=== PATIENT | female | born 1945 | race Caucasian/White ===

== ENCOUNTER 2017-05-19 19:20 | Inpatient (IN) | payer MEDICARE ==
[~2017-05-19] VITALS: Ht 157.5 cm; Wt 94.5 kg
[2017-05-19 19:21] VITALS: BP 215/109; PULSE 94; RESP 16; TEMP 97.9; O2SAT 97
[2017-05-19] MEDS ORDERED: LISI40TA PO (19:50)
--- NOTE | 2017-05-19 19:58 | PD ---
HPI Chief Complaint: Hypertension Time Seen by Provider: 19:48 Travel History International Travel<30 days: No Contact w/Intl Traveler<30days: No Traveled to known affect area: No History of Present Illness HPI 72-year-old female with history of hypertension, here for evaluation of elevated blood pressure and chest discomfort. The patient's son was recently admitted to the ICU, and she was informed of this this morning. Shortly after she began to experience substernal chest discomfort. The discomfort has been present throughout the day today and has been constant, no modifying factors, currently is mild, nonradiating. She has some slight dyspnea. She denies history of coronary artery disease. She became very upset while visiting her son up in the ICU, and they checked her blood pressure and noted to be 200s over 100s. She is also complaining of some tingling sensation around her lips. Other than that no paresthesias or motor deficits. No fevers, chills, cough, recent illness. No history of DVT or PE. PFSH Past Medical History ?: Not Social History Tobacco Use: No Allergies-Medications (Allergen,Severity, Reaction): Coded Allergies: No Known Allergies (Unverified , 05/19/17) Reported Meds & Prescriptions Reported Meds & Active Scripts Active Reported Ropinirole 0.5 Mg Tab Unknown Dose PO HS Lisinopril 40 Mg Tab 40 Mg PO DAILY Review of Systems Except as stated in HPI: all other systems reviewed are Neg Physical Exam Narrative GENERAL: Well-developed, well-nourished, tearful, no apparent distress. SKIN: Focused skin assessment warm/dry. HEAD: Atraumatic. Normocephalic. EYES: Pupils equal and round. No scleral icterus. No injection or drainage. ENT: Mucous membranes pink and moist. NECK: Trachea midline. No JVD. CARDIOVASCULAR: Regular rate and rhythm. Distal pulses brisk and equal bilaterally. RESPIRATORY: No accessory muscle use. Clear to auscultation. Breath sounds equal bilaterally. GASTROINTESTINAL: Abdomen soft, non-tender, nondistended. MUSCULOSKELETAL: No obvious deformities. No clubbing. No cyanosis. Very mild bilateral pedal edema from foot ankle. No calf tenderness. NEUROLOGICAL: Awake and alert. No obvious cranial nerve deficits. Motor grossly within normal limits. Normal speech. PSYCHIATRIC: Appropriate mood and affect; insight and judgment normal. Data Data Last Documented VS Vital Signs Date Time Temp Pulse Resp B/P (MAP) Pulse Ox O2 Delivery O2 Flow Rate FiO2 05/19/17 21:00 77 18 150/75 (100) 96 Room Air 05/19/17 19:21 97.9 Orders Orders Electrocardiogram (05/19/17 19:54) Basic Metabolic Panel (Bmp) (05/19/17 19:54) Ckmb (Isoenzyme) Profile (05/19/17 19:54) Complete Blood Count With Diff (05/19/17 19:54) Prothrombin Time / Inr (Pt) (05/19/17 19:54) Act Partial Throm Time (Ptt) (05/19/17 19:54) Troponin I (05/19/17 19:54) Chest, Single Ap (05/19/17 19:54) Ecg Monitoring (05/19/17 19:54) Bilateral Bp Monitoring (05/19/17 19:54) Iv Access Insert/Monitor (05/19/17 19:54) Oximetry (05/19/17 19:54) Oxygen Administration (05/19/17 19:54) Aspirin Chew (Aspirin Chew) (05/19/17 20:00) Sodium Chloride 0.9% Flush (Ns Flush) (05/19/17 20:00) Nitroglycerin Sl (Nitrostat Sl) (05/19/17 20:00) Enalaprilat Inj (Vasotec Inj) (05/19/17 20:00) CKMB (05/19/17 20:05) CKMB% (05/19/17 20:05) Heparin Inj (Heparin Inj) (05/19/17 21:15) Heparin Inj (Heparin Inj) (05/20/17 03:15) Heparin Inj (Heparin Inj) (05/20/17 03:15) Heparin-D5w 25,000 U/250 Ml (Heparin-D5w (05/19/17 21:15) Cbc No Diff, Includes Plts (05/22/17 06:00) Act Partial Throm Time (Ptt) (05/20/17 04:13) Occult Blood (Hemoccult) Stool (05/19/17 21:13) Admit Order (Ed Use Only) (05/19/17 21:19) Labs Laboratory Tests Test 05/19/17 20:05 White Blood Count 10.0 TH/MM3 Red Blood Count 3.99 MIL/MM3 Hemoglobin 12.1 GM/DL Hematocrit 35.9 % Mean Corpuscular Volume 90.1 FL Mean Corpuscular Hemoglobin 30.4 PG Mean Corpuscular Hemoglobin Concent 33.8 % Red Cell Distribution Width 14.6 % Platelet Count 348 TH/MM3 Mean Platelet Volume 8.8 FL Neutrophils (%) (Auto) 61.8 % Lymphocytes (%) (Auto) 26.2 % Monocytes (%) (Auto) 9.3 % Eosinophils (%) (Auto) 1.7 % Basophils (%) (Auto) 1.0 % Neutrophils # (Auto) 6.2 TH/MM3 Lymphocytes # (Auto) 2.6 TH/MM3 Monocytes # (Auto) 0.9 TH/MM3 Eosinophils # (Auto) 0.2 TH/MM3 Basophils # (Auto) 0.1 TH/MM3 CBC Comment DIFF FINAL Differential Comment Prothrombin Time 11.0 SEC Prothromb Time International Ratio 1.0 RATIO Activated Partial Thromboplast Time 28.6 SEC Blood Urea Nitrogen 17 MG/DL Creatinine 0.88 MG/DL Random Glucose 80 MG/DL Calcium Level 9.9 MG/DL Sodium Level 139 MEQ/L Potassium Level 3.6 MEQ/L Chloride Level 105 MEQ/L Carbon Dioxide Level 22.9 MEQ/L Anion Gap 11 MEQ/L Estimat Glomerular Filtration Rate 63 ML/MIN Total Creatine Kinase 127 U/L Creatine Kinase MB 5.3 NG/ML Troponin I 1.40 NG/ML [facility] Medical Decision Making Medical Screen Exam Complete: Yes Emergency Medical Condition: Yes Interpretation(s) EKG: Sinus, rate 89, normal axis, normal intervals, Q waves in septal leads, no acute ischemic abnormality. Differential Diagnosis ACS, pneumothorax, pericarditis, PE, pneumonia, Takotsubo's, hypertensive crisis Narrative Course Initial vital signs show heart rate 94, blood pressure 215/109, pulse ox 97% on room air, oral temp of 97.9F. Blood pressure improved to 180/101 after sublingual nitroglycerin. Bilateral blood pressures show 180/101 in the left upper extremity, 179/91 in the right upper extremity. CBC is unremarkable. BMP is unremarkable. Troponin is 1.40. Chest x-ray interpreted by me shows no free air, no pneumothorax, no infiltrate. Patient was made aware of all findings. Her substernal chest discomfort resolved after 1 sublingual nitroglycerin. Her blood pressure has improved to 150/72. Case discussed with on-call educational administration teacher Dr. Caban. The patient will be started on heparin, admitted to the hospitalist service. He will see the patient in consultation. Case discussed with hospitalist Dr. Montes De Oca who will admit the patient to her service. Critical Care Narrative Aggregate critical care time was 35 minutes. Time to perform other separately billable procedures was not included in the critical care time. My time did not include minutes spent treating any other patients simultaneously or on activities that did not directly contribute to the patient's treatment. The services I provided to this patient were to treat and/or prevent clinically significant deterioration that could result in: , permanent disability, cardiogenic shock, worsening clinical condition I provided critical care services requiring my management, as noted below: Chart data review, documentation time, medication orders and management, vital sign assessments/reviewing monitor data, ordering and reviewing lab tests, ordering and interpreting/reviewing x-rays and diagnostic studies, care of the patient and discussion of the patient with the admitting physicians. Diagnosis Primary Impression: NSTEMI (non-ST elevated myocardial infarction) Chris Geller MD May 19, 2017 19:58
[2017-05-19] MEDS ORDERED: NITROGLYCERIN 0.4 MG SL 25 TABS/BTL SL ONE (20:00)
[2017-05-19] MEDS ORDERED: SODIUM CHLORIDE 0.9% FLUSH 10 ML FLUSH IVF PRN (20:00)
[2017-05-19] MEDS ORDERED: ASPIRIN 81 MG CHEW TAB PO ONE (20:00)
[2017-05-19] MEDS ORDERED: ENALAPRILAT 2.5 MG/2 ML VIAL IV PUSH ONE (20:00)
[2017-05-19 20:05] VITALS: BP 180/101; PULSE 80; RESP 20; O2SAT 98
[2017-05-19 20:07] VITALS: BP_SYST 179; BP_SYST 180; BP_DIAS 101; BP_DIAS 91; PULSE 80; RESP 20; O2SAT 98
[2017-05-19] MEDS ORDERED: ROPI0.5T PO (20:09)
[2017-05-19 20:42] LABS: AUTOMATED NEUTROPHIL # 6.2 TH/MM3 (1.8-7.7); BASOPHIL # 0.1 TH/MM3 (0-0.2); EOSINOPHIL # 0.2 TH/MM3 (0-0.4); EOSINOPHIL % 1.7 % (0.0-4.0); HEMATOCRIT 35.9 % (35.0-46.0); HEMO FLAGS DIFF FINAL; LYMPH % 26.2 % (9.0-44.0); LYMPHOCYTE # 2.6 TH/MM3 (1.0-4.8); MEAN CELL VOLUME 90.1 FL (80.0-100.0); MEAN CORPUSCULAR HEMOGLOBIN 30.4 PG (27.0-34.0); MEAN CORPUSCULAR HGB CONC 33.8 % (32.0-36.0); MONO % 9.3 % (0.0-8.0); NEUT % 61.8 % (16.0-70.0); PLATELET COUNT 348 TH/MM3 (150-450); RED BLOOD COUNT 3.99 MIL/MM3 (4.00-5.30); RED CELL DISTRIBUTION WIDTH 14.6 % (11.6-17.2)
[2017-05-19 20:56] LABS: ANION GAP 11 MEQ/L (5-15); BICARBONATE 22.9 MEQ/L (21.0-32.0); BLOOD UREA NITROGEN 17 MG/DL (7-18); CHLORIDE 105 MEQ/L (98-107); GLOMERULAR FILTRATION RATE 63 ML/MIN (>89); POTASSIUM 3.6 MEQ/L (3.5-5.1); SODIUM (NA) 139 MEQ/L (136-145)
[2017-05-19 21:00] VITALS: BP 150/75; PULSE 77; RESP 18; O2SAT 96
[2017-05-19 21:00] LABS: APTT (PATIENT) 28.6 SEC (24.3-30.1); CREATINE KINASE 127 U/L (26-192)
[2017-05-19] MEDS ORDERED: HEPARIN SODIUM - IV 10,000 UNITS/10 ML VIAL IV PUSH ONE (21:15)
[2017-05-19] MEDS ORDERED: HEPARIN-D5W 25,000 U/250 ML 250 ML IV PRN (21:15)
[2017-05-19 21:20] LABS: CKMB 5.3 NG/ML (0.5-3.6)
--- NOTE | 2017-05-19 21:36 | HHI.HP ---
[facility] Service [facility] Primary Care Physician No Primary Care Physician Admission Diagnosis NSTEMI Diagnoses: (1) NSTEMI (non-ST elevated myocardial infarction) Diagnosis: Principal (2) Hypertensive urgency Diagnosis: Principal (3) Dehydration Diagnosis: Principal Travel History International Travel<30 Days: No Contact w/Intl Traveler <30 Da: No Traveled to Known Affected Are: No History of Present Illness This is a 72-year-old female with a PMH of HTN who presents to the ER secondary to elevated blood pressure. States she was visiting her Son who is a patient in the ICU w/ liver/renal failure, when she suddenly had episode of chest pain. BP taken by LOAN REVIEW ANALYST noted to be in 200's systolic. Pt states she forgot to take her Lisinopril today in light of her Son's admission to the ICU. On arrival to ER BP 250/109, HR 94, O2 sat 97% on RA, Afebrile. S/p Vasotec 2.5mg IV in ER, BP currently 160's systolic. CBC unremarkable. Chemistry remarkable except for GFR 63. Troponin 1.40. CXR with no acute findings. Dr. Caban consulted by ER physician, recommended Heparin gtt, will eval in am. Review of Systems Except as stated in HPI: all other systems reviewed are Neg ROS: 14 point review of systems otherwise negative. Past Family Social History Past Medical History PMH: HTN Past Surgical History PAST SURGICAL HISTORY: Appendectomy, Cholecystectomy Allergies: Coded Allergies: No Known Allergies (Unverified , 05/19/17) Family History PAST FAMILY HISTORY: Reviewed. No h/o DM or CAD Social History PAST SOCIAL HISTORY: Negative for alcohol, tobacco or drugs. Physical Exam Vital Signs Vital Signs Date Time Temp Pulse Resp B/P (MAP) Pulse Ox O2 Delivery O2 Flow Rate FiO2 05/19/17 20:07 80 20 180/101 (127) 98 Room Air 179/91 (120) 05/19/17 20:05 80 20 180/101 (127) 98 Room Air 05/19/17 19:21 97.9 94 16 215/109 (144) 97 Room Air Physical Exam PE: GENERAL: Elderly white female, significantly tearful and upset she is not able to be with her Son. HEENT: PERRLA, EOMI. No scleral icterus or conjunctival pallor. No lid lag or facial droop. CARDIOVASCULAR: Regular rate and rhythm. No obvious murmurs to auscultation. No chest tenderness to palpation. RESPIRATORY: No obvious rhonchi or wheezing. Clear to auscultation. Breath sounds equal bilaterally. GASTROINTESTINAL: Abdomen soft, non-tender, nondistended. BS normal. MUSCULOSKELETAL: Extremities without clubbing, cyanosis, or edema. No obvious deformities. NEUROLOGICAL: Awake, alert and oriented x4. No focal neurologic deficits. Moving both upper and lower extremities spontaneously. Laboratory Laboratory Tests Test 05/19/17 20:05 White Blood Count 10.0 Red Blood Count 3.99 Hemoglobin 12.1 Hematocrit 35.9 Mean Corpuscular Volume 90.1 Mean Corpuscular Hemoglobin 30.4 Mean Corpuscular Hemoglobin Concent 33.8 Red Cell Distribution Width 14.6 Platelet Count 348 Mean Platelet Volume 8.8 Neutrophils (%) (Auto) 61.8 Lymphocytes (%) (Auto) 26.2 Monocytes (%) (Auto) 9.3 Eosinophils (%) (Auto) 1.7 Basophils (%) (Auto) 1.0 Neutrophils # (Auto) 6.2 Lymphocytes # (Auto) 2.6 Monocytes # (Auto) 0.9 Eosinophils # (Auto) 0.2 Basophils # (Auto) 0.1 CBC Comment DIFF FINAL Differential Comment Prothrombin Time 11.0 Prothromb Time International Ratio 1.0 Activated Partial Thromboplast Time 28.6 Blood Urea Nitrogen 17 Creatinine 0.88 Random Glucose 80 Calcium Level 9.9 Sodium Level 139 Potassium Level 3.6 Chloride Level 105 Carbon Dioxide Level 22.9 Anion Gap 11 Estimat Glomerular Filtration Rate 63 Total Creatine Kinase 127 Creatine Kinase MB 5.3 Troponin I 1.40 Result Diagram: 05/19/17200405/19/172004 Caprini VTE Risk Assessment Caprini VTE Risk Assessment: Mod/High Risk (score >= 2) Caprini Risk Assessment Model Point Value = 1 Point Value = 2 Point Value = 3 Point Value = 5 Age 41-60 Minor surgery BMI > 25 kg/m2 Swollen legs Varicose veins or History of unexplained or recurrent spontaneous Oral contraceptives or hormone replacement Sepsis (< 1 month) Serious lung disease, including pneumonia (< 1 month) Abnormal pulmonary function Acute myocardial infarction Congestive heart failure (< 1 month) History of inflammatory bowel disease Medical patient at bed rest Age 61-74 Arthroscopic surgery Major open surgery (> 45 min) Laparoscopic surgery (> 45 min) Malignancy Confined to bed (> 72 hours) Immobilizing plaster cast Central venous access Age >= 75 History of VTE Family history of VTE Factor V Leiden Prothrombin 40430G Lupus anticoagulant Anticardiolipin antibodies Elevated serum homocysteine Heparin-induced thrombocytopenia Other congenital or acquired thrombophilia Stroke (< 1 month) Elective arthroplasty Hip, pelvis, or leg fracture Acute spinal cord injury (< 1 month) Prophylaxis Regimen Total Risk Factor Score Risk Level Prophylaxis Regimen 0-1 Low Early ambulation 2 Moderate Order ONE of the following: *Sequential Compression Device (SCD) *Heparin 5000 units SQ BID 3-4 Higher Order ONE of the following medications: *Heparin 5000 units SQ TID *Enoxaparin/Lovenox 40 mg SQ daily (WT < 150 kg, CrCl > 30 mL/min) *Enoxaparin/Lovenox 30 mg SQ daily (WT < 150 kg, CrCl > 10-29 mL/min) *Enoxaparin/Lovenox 30 mg SQ BID (WT < 150 kg, CrCl > 30 mL/min) AND/OR *Sequential Compression Device (SCD) 5 or more Highest Order ONE of the following medications: *Heparin 5000 units SQ TID (Preferred with Epidurals) *Enoxaparin/Lovenox 40 mg SQ daily (WT < 150 kg, CrCl > 30 mL/min) *Enoxaparin/Lovenox 30 mg SQ daily (WT < 150 kg, CrCl > 10-29 mL/min) *Enoxaparin/Lovenox 30 mg SQ BID (WT < 150 kg, CrCl > 30 mL/min) AND *Sequential Compression Device (SCD) Assessment and Plan Problem List: (1) NSTEMI (non-ST elevated myocardial infarction) ICD Code: I21.4 - Non-ST elevation (NSTEMI) myocardial infarction Status: Acute (2) Hypertensive urgency ICD Code: I16.0 - Hypertensive urgency (3) Dehydration ICD Code: E86.0 - Dehydration Assessment and Plan A/P: 1. NSTEMI: acute onset of substernal chest pain, Trop 1.40, EKG w/ no acute ischemia. Dr. Caban consulted by ER physician, Heparin gtt and will eval in am. Continue Heparin, check serial cardiac enzymes, check Lipid Profile, start ASA, Statin, Metoprolol. NTG/Morphine prn if needed. 2. Hypertensive Urgency: BP 219/109, HR 94. S/p Vasotec in ER w/ BP currently 160's. Resume home medications, start Metoprolol as above. 3. Dehydration: GFR 63, IVF for hydration, repeat labs in am. 4. DVT Prophylaxis: Heparin gtt 5. Social work for d/c planning as needed. 6. Case discussed w/ ER physician at length. Physician Certification 2 Midnight Certification Type: Admission for Inpatient Services Order for Inpatient Services The services are ordered in accordance with Medicare regulations or non- Medicare payer requirements, as applicable. In the case of services not specified as inpatient-only, they are appropriately provided as inpatient services in accordance with the 2-midnight benchmark. Estimated LOS (days): 2 days is the estimated time the patient will need to remain in the hospital, assuming treatment plan goals are met and no additional complications. Post-Hospital Plan: Not yet determined Essence Montes De Oca MD May 19, 2017 21:36
--- NOTE | 2017-05-19 21:38 | RADRPT ---
EXAM DATE/TIME: 05/19/2017 20:17 [facility] COMPARISON: No previous studies available for comparison. INDICATIONS : Chest pain. MEDICAL HISTORY : Hypertension. SURGICAL HISTORY : None. ENCOUNTER: Initial ACUITY: 1 day PAIN SCORE: 5/10 LOCATION: chest FINDINGS: A single view of the chest demonstrates the lungs to be symmetrically aerated without evidence of mas s, infiltrate or effusion. The cardiomediastinal contours are unremarkable. Osseous structures are intact. CONCLUSION: No acute disease. Anmol Sharma MD on May 19, 2017 at 21:37 Board Certified Radiologist. This report was verified electronically.
[2017-05-19] MEDS ORDERED: ACETAMINOPHEN 325 MG TAB PO PRN (21:45)
[2017-05-19] MEDS ORDERED: SODIUM CHLORIDE 0.9% FLUSH 10 ML FLUSH IV FLUSH PRN (21:45)
[2017-05-19] MEDS ORDERED: LACTULOSE SYRUP 20 GM/30 ML CUP PO PRN (21:45)
[2017-05-19] MEDS ORDERED: BISACODYL 10 MG SUPP RECTAL PRN (21:45)
[2017-05-19] MEDS ORDERED: MORPHINE SULFATE 4 MG/ML INJ IV PUSH PRN (21:45)
[2017-05-19] MEDS ORDERED: MAGNESIUM HYDROXIDE SUSP 30 ML CUP PO PRN (21:45)
[2017-05-19] MEDS ORDERED: ONDANSETRON HCL 4 MG/2 ML VIAL IVP PRN (21:45)
[2017-05-19] MEDS ORDERED: NITROGLYCERIN 2% OINT 1 GM PACKET TOPICAL PRN (21:45)
[2017-05-19] MEDS ORDERED: SENNOSIDES 8.6 MG TAB PO PRN (21:45)
[2017-05-19 22:00] VITALS: BP 170/91; PULSE 76; RESP 16; O2SAT 97
[2017-05-19] MEDS ORDERED: HYDROmorphone HCL PF 0.5 MG/0.5 ML SYRINGE IV PUSH ONE (22:15)
[2017-05-19 23:06] VITALS: BP 151/79; PULSE 76; RESP 16; O2SAT 95
[2017-05-19] MEDS: SODIUM CHLOR 0.9% 1000 ML INJ 1,000 ML IV SCH (23:32)
[2017-05-19] MEDS ORDERED: diphenhydrAMINE HCL 50 MG/ML VIAL IV PUSH ONE (23:45)
[2017-05-20] VITALS (18 sets, daily range): BP systolic 119–180; BP diastolic 74–103; PULSE 61–93; RESP 16–18; TEMP 96.4–98.4; O2SAT 95–99
[2017-05-20] MEDS ORDERED: HEPARIN SODIUM - IV 10,000 UNITS/10 ML VIAL IV PUSH PRN ×2 (03:15)
--- NOTE | 2017-05-20 05:52 | MB ---
cc: VARUN CABAN DATE OF CONSULTATION 05/19/2017 REASON FOR CONSULTATION Ms. Matson is a 72-year-old white female with history of hypertension and dyslipidemia. She was visiting her son who is admitted to the ICU and with severe illness, developed substernal chest discomfort which started this morning. She has had mild dyspnea. Her blood pressure was elevated over 200 when she was visiting her son. PAST MEDICAL HISTORY 1. History of hypertension. 2. Dyslipidemia. No history of coronary artery disease or CVA. INDICATIONS 1. Lisinopril. 2. Ropinerol. ALLERGIES None. SOCIAL HISTORY The patient does not smoke. She does drinks alcohol rarely. She is accompanied by her . FAMILY HISTORY Positive for heart disease. REVIEW OF SYSTEMS Otherwise negative. PHYSICAL EXAMINATION VITAL SIGNS: Blood pressure was 170/90, pulse 80 and regular. HEENT: Negative. NECK: 2+ carotid upstrokes. No bruits. LUNGS: Clear. HEART: Regular with no murmur, gallop or rub. ABDOMEN: Soft. No bruits. EXTREMITIES: No edema. 2+ distal pulses. NEUROLOGIC: Grossly intact. The patient is restless. EKG Reviewed and showed normal sinus rhythm with normal axis and intervals. Delayed R-wave progression of pericardial leads and no acute changes. LABORATORY DATA Hemoglobin 12.1, potassium 3.6, creatinine 0.9. CK 127, CK-MB 5.3, troponin 1.4. DIAGNOSES 1. Rep-[id number]-[id number] myocardial function. 2. Severe hypertension. 3. Anxiety. DISPOSITION 1. Ms. Matson will be monitored with telemetry, serial enzymes and EKGs. 2. We will obtain adenosine myocardial perfusion study tomorrow to evaluate for significant ischemia. The patient is currently asymptomatic. 3. I recommend she be started on IV heparin. 4. We will continue and titrate medications for better control of her cardiac risk factors. 5. She will follow up with her physicians at home. Varun Caban MD OQ/SSB /9:45 PM /5:37 AM
[2017-05-20 07:04] LABS: APTT (PATIENT) 66.2 SEC (24.3-30.1)
[2017-05-20] MEDS: PRAVASTATIN SOD 40 MG TAB PO SCH (08:16)
[2017-05-20] MEDS: METOPROLOL TARTRATE 25 MG TAB PO SCH ×2 (08:16→21:17)
[2017-05-20] MEDS: ASPIRIN EC 81 MG TABEC PO SCH (08:16)
[2017-05-20] MEDS: SODIUM CHLORIDE 0.9% FLUSH 10 ML FLUSH IV FLUSH SCH ×2 (08:17→21:17)
[2017-05-20] MEDS: SODIUM CHLOR 0.9% 1000 ML INJ 1,000 ML IV SCH (08:17)
[2017-05-20] MEDS: DOCUSATE SODIUM 50 MG/SENNA 8.6 MG TAB PO SCH ×2 (08:17→21:17)
[2017-05-20 09:48] LABS: AUTOMATED NEUTROPHIL # 3.7 TH/MM3 (1.8-7.7); BASOPHIL # 0.1 TH/MM3 (0-0.2); BASOPHIL % 1.2 % (0.0-2.0); EOSINOPHIL # 0.3 TH/MM3 (0-0.4); EOSINOPHIL % 3.3 % (0.0-4.0); HEMATOCRIT 30.6 % (35.0-46.0); HEMO FLAGS DIFF FINAL; LYMPH % 36.9 % (9.0-44.0); LYMPHOCYTE # 2.8 TH/MM3 (1.0-4.8); MEAN CORPUSCULAR HEMOGLOBIN 31.3 PG (27.0-34.0); MEAN CORPUSCULAR HGB CONC 34.8 % (32.0-36.0); NEUT % 49.6 % (16.0-70.0); PLATELET COUNT 278 TH/MM3 (150-450); RED CELL DISTRIBUTION WIDTH 14.5 % (11.6-17.2); WHITE BLOOD COUNT 7.5 TH/MM3 (4.0-11.0)
[2017-05-20 10:25] LABS: ALKALINE PHOSPHATASE 48 U/L (45-117); ALT (GPT) 18 U/L (10-53); ANION GAP 9 MEQ/L (5-15); AST (GOT) 22 U/L (15-37); BICARBONATE 21.8 MEQ/L (21.0-32.0); BLOOD UREA NITROGEN 15 MG/DL (7-18); CHLORIDE 110 MEQ/L (98-107); GLOMERULAR FILTRATION RATE 83 ML/MIN (>89); LDL CHOLESTEROL 116 MG/DL (0-99); POTASSIUM 3.5 MEQ/L (3.5-5.1); SODIUM (NA) 141 MEQ/L (136-145); TOTAL BILIRUBIN ADULT 0.8 MG/DL (0.2-1.0)
[2017-05-20] MEDS ORDERED: REGADENOSON INJ 0.4 MG/5 ML SYR ONE (11:03)
--- NOTE | 2017-05-20 12:36 | PD.CARD.PN ---
Subjective Subjective Remarks Mild chest tightness, mild sob, anxious, trop decreasing Objective Medications Current Medications Medications (Trade) Dose Ordered Sig/Yandy Route Start Time Stop Time Status Last Admin (Heparin Inj) 5,000 units UNSCH PRN IV PUSH 05/20/17 03:15 (Heparin Inj) 2,500 units UNSCH PRN IV PUSH 05/20/17 03:15 Heparin Sodium/ Dextrose 250 ml @ 10 mls/hr TITRATE PRN IV 05/19/17 21:15 05/19/17 22:06 (Ecotrin Ec) 81 mg DAILY PO 05/20/17 09:00 05/20/17 08:16 (Lopressor) 25 mg Q12HR PO 05/20/17 09:00 05/20/17 08:16 (Pravachol) 40 mg DAILY PO 05/20/17 09:00 05/20/17 08:16 Sodium Chloride 1,000 ml @ 100 mls/hr Q10H IV 05/19/17 21:31 05/20/17 08:17 (NS Flush) 2 ml UNSCH PRN IV FLUSH 05/19/17 21:45 (NS Flush) 2 ml BID IV FLUSH 05/20/17 09:00 05/20/17 08:17 (Zofran Inj) 4 mg Q6H PRN IVP 05/19/17 21:45 (Tylenol) 650 mg Q6H PRN PO 05/19/17 21:45 05/20/17 08:25 ([place] 5-325 Mg) 1 tab Q4H PRN PO 05/19/17 21:45 (Morphine Inj) 2 mg Q3H PRN IV PUSH 05/19/17 21:45 (Kelsi-Colace) 1 tab BID PO 05/20/17 09:00 05/20/17 08:17 (Milk Of Magnesia Liq) 30 ml Q12H PRN PO 05/19/17 21:45 (Senokot) 17.2 mg Q12H PRN PO 05/19/17 21:45 (Dulcolax Supp) 10 mg DAILY PRN RECTAL 05/19/17 21:45 (Lactulose Liq) 30 ml DAILY PRN PO 05/19/17 21:45 (Nitroglycerin 2% Oint) 0.5 inch Q6HR PRN TOPICAL 05/19/17 21:45 (Requip) 0.5 mg HS PO 05/19/17 22:15 05/19/17 22:51 Vital Signs / I&O Vital Signs Date Time Temp Pulse Resp B/P (MAP) Pulse Ox O2 Delivery O2 Flow Rate FiO2 05/20/17 09:38 18 05/20/17 08:15 98.2 73 18 174/93 (120) 96 05/20/17 07:00 69 05/20/17 05:56 98.4 62 16 138/74 (95) 99 05/20/17 04:00 76 05/20/17 03:00 76 05/20/17 02:00 70 05/20/17 01:35 98.4 61 16 150/83 (105) 99 05/20/17 01:20 67 05/20/17 00:58 05/19/17 23:06 76 16 151/79 (103) 95 Room Air 05/19/17 22:00 76 16 170/91 (117) 97 Room Air 05/19/17 21:00 77 18 150/75 (100) 96 Room Air 05/19/17 20:07 80 20 180/101 (127) 98 Room Air 179/91 (120) 05/19/17 20:05 80 20 180/101 (127) 98 Room Air 05/19/17 19:21 97.9 94 16 215/109 (144) 97 Room Air I/O 05/19/17 05/19/17 05/19/17 05/20/17 05/20/17 05/20/17 07:00 15:00 23:00 07:00 15:00 23:00 Output Total 200 ml Balance -200 ml Output Urine Total 200 ml Physical Exam GENERAL: In NAD SKIN: Warm and dry. HEAD: Normocephalic. EYES: No scleral icterus. No injection or drainage. NECK: Supple, trachea midline. No JVD or lymphadenopathy. CARDIOVASCULAR: Regular rate and rhythm without murmurs, gallops, or rubs. RESPIRATORY: Breath sounds equal bilaterally. No accessory muscle use. GASTROINTESTINAL: Abdomen soft, non-tender, nondistended. MUSCULOSKELETAL: No cyanosis, or edema. Laboratory Laboratory Tests Test 05/19/17 20:05 05/20/17 04:35 05/20/17 08:20 White Blood Count 10.0 TH/MM3 7.5 TH/MM3 Red Blood Count 3.99 MIL/MM3 3.40 MIL/MM3 Hemoglobin 12.1 GM/DL 10.7 GM/DL Hematocrit 35.9 % 30.6 % Mean Corpuscular Volume 90.1 FL 90.0 FL Mean Corpuscular Hemoglobin 30.4 PG 31.3 PG Mean Corpuscular Hemoglobin Concent 33.8 % 34.8 % Red Cell Distribution Width 14.6 % 14.5 % Platelet Count 348 TH/MM3 278 TH/MM3 Mean Platelet Volume 8.8 FL 9.1 FL Neutrophils (%) (Auto) 61.8 % 49.6 % Lymphocytes (%) (Auto) 26.2 % 36.9 % Monocytes (%) (Auto) 9.3 % 9.0 % Eosinophils (%) (Auto) 1.7 % 3.3 % Basophils (%) (Auto) 1.0 % 1.2 % Neutrophils # (Auto) 6.2 TH/MM3 3.7 TH/MM3 Lymphocytes # (Auto) 2.6 TH/MM3 2.8 TH/MM3 Monocytes # (Auto) 0.9 TH/MM3 0.7 TH/MM3 Eosinophils # (Auto) 0.2 TH/MM3 0.3 TH/MM3 Basophils # (Auto) 0.1 TH/MM3 0.1 TH/MM3 CBC Comment DIFF FINAL DIFF FINAL Differential Comment Prothrombin Time 11.0 SEC Prothromb Time International Ratio 1.0 RATIO Activated Partial Thromboplast Time 28.6 SEC 66.2 SEC Blood Urea Nitrogen 17 MG/DL 15 MG/DL Creatinine 0.88 MG/DL 0.69 MG/DL Random Glucose 80 MG/DL 75 MG/DL Calcium Level 9.9 MG/DL 9.0 MG/DL Sodium Level 139 MEQ/L 141 MEQ/L Potassium Level 3.6 MEQ/L 3.5 MEQ/L Chloride Level 105 MEQ/L 110 MEQ/L Carbon Dioxide Level 22.9 MEQ/L 21.8 MEQ/L Anion Gap 11 MEQ/L 9 MEQ/L Estimat Glomerular Filtration Rate 63 ML/MIN 83 ML/MIN Total Creatine Kinase 127 U/L Creatine Kinase MB 5.3 NG/ML Troponin I 1.40 NG/ML 0.94 NG/ML Total Protein 6.3 GM/DL Albumin 3.2 GM/DL Alkaline Phosphatase 48 U/L Aspartate Amino Transf (AST/SGOT) 22 U/L Alanine Aminotransferase (ALT/SGPT) 18 U/L Total Bilirubin 0.8 MG/DL Triglycerides Level 58 MG/DL Cholesterol Level 184 MG/DL LDL Cholesterol 116 MG/DL HDL Cholesterol 56.0 MG/DL Cholesterol/HDL Ratio 3.28 RATIO Imaging Last 24 hours Impressions Chest X-Ray 05/19/171953 Signed Impressions: Service Date/Time: Friday, May 19, 2017 20:17 - CONCLUSION: No acute disease. Anmol Sharma MD Assessment and Plan Problem List: (1) NSTEMI (non-ST elevated myocardial infarction) ICD Codes: I21.4 - Non-ST elevation (NSTEMI) myocardial infarction Status: Acute (2) Hypertensive urgency ICD Codes: I16.0 - Hypertensive urgency Assessment and Plan Mild troponin elevation. Continue and titrate BP control. Adenosine myocardial perfusion study today. Increase activity. D/w pt and . Varun Caban MD May 20, 2017 12:36
[2017-05-20] MEDS ORDERED: RESP: ALBUTEROL CONC 2.5 MG/0.5 ML NEB NEB PRN (14:30)
--- NOTE | 2017-05-20 14:40 | RADRPT ---
EXAM DATE/TIME: 05/20/2017 11:27 [facility] COMPARISON: No previous studies available for comparison. INDICATIONS : Midsternal chest pain. Angina. DOSE: 26.9 mCi Tc99m Myoview at stress. 8.4 mCi Tc99m Myoview at rest. 0.4 mg Lexiscan STRESS SYMPTOMS: Dyspnea, chest pain and nausea. EJECTION FRACTION: 43% MEDICAL HISTORY : Hypertension. SURGICAL HISTORY : Cholecystectomy. ENCOUNTER: Initial ACUITY: 2 days PAIN SCALE: 5/10 LOCATION: Midsternal chest TECHNIQUE: The patient underwent pharmacologic stress with infusion of prescribed dose. Continuous ECG tracing was monitored during stress. Gated SPECT imaging was performed after stress and conventional SPECT i maging was performed at rest. The examination was performed on a SPECT/CT scanner, both attenuation and non-corrected datasets were reviewed. FINDINGS: DISTRIBUTION: The maximum perfused segment at stress is in the lateral wall. PERFUSION STUDY: There is moderate severity decreased uptake in the apical and mid ventricular segments of the anterio r wall and apical segment of the septum with decrease in perfusion approximately 50%, unchanged betwe en stress and rest. The decrease in perfusion is discernible on both the attenuation corrected and n on-attenuation corrected datasets. No evidence of redistribution. The summed stress score is 10. GATED STUDY: There is hypokinesia of the mid and apical segments of the anterior wall. Findings suggest possible dyskinesia, but this cannot be stated with certainty given the perfusion defect and potential for tra cking errors. CONCLUSION: 1. Large size, moderate severity, fixed perfusion defect involving the anterior wall suggesting prior myocardial infarction. 2. There is also evidence of hypokinesia to the anterior wall and a globally depressed ejection fract ion of 43%. 3. No evidence of stress-induced ischemia. RISK CATEGORY: Intermediate (1-3% Annual Mortality Rate) Qasim Syed MD on May 20, 2017 at 14:32 Board Certified Radiologist. This report was verified electronically.
[2017-05-20] MEDS ORDERED: hydrALAZINE HCL 10 MG TAB PO PRN (14:45)
[2017-05-20] MEDS ORDERED: ENALAPRILAT 2.5 MG/2 ML VIAL IV PUSH PRN (15:00)
[2017-05-20] MEDS ORDERED: LISINOPRIL 20 MG TAB PO ONE (15:00)
[2017-05-20] MEDS ORDERED: methylPREDNISolone SOD SUCC 125 MG/2 ML VIAL IV PUSH ONE (15:00)
--- NOTE | 2017-05-20 15:00 | HHI.PR ---
Subjective Remarks Pt just had her perfusion scan, came back w SOB and wheezing. Pt does have a hx of asthma but hasn't had a flair for a long time. States that her SOB started last night but worsened now. No CP at this time, nausea or vomiting. Objective Vitals Vital Signs Date Time Temp Pulse Resp B/P (MAP) Pulse Ox O2 Delivery O2 Flow Rate FiO2 05/20/17 09:38 18 05/20/17 08:15 98.2 73 18 174/93 (120) 96 05/20/17 07:00 69 05/20/17 05:56 98.4 62 16 138/74 (95) 99 05/20/17 04:00 76 05/20/17 03:00 76 05/20/17 02:00 70 05/20/17 01:35 98.4 61 16 150/83 (105) 99 05/20/17 01:20 67 05/20/17 00:58 05/19/17 23:06 76 16 151/79 (103) 95 Room Air 05/19/17 22:00 76 16 170/91 (117) 97 Room Air 05/19/17 21:00 77 18 150/75 (100) 96 Room Air 05/19/17 20:07 80 20 180/101 (127) 98 Room Air 179/91 (120) 05/19/17 20:05 80 20 180/101 (127) 98 Room Air 05/19/17 19:21 97.9 94 16 215/109 (144) 97 Room Air I/O 05/19/17 05/19/17 05/19/17 05/20/17 05/20/17 05/20/17 07:00 15:00 23:00 07:00 15:00 23:00 Output Total 200 ml Balance -200 ml Output Urine Total 200 ml Result Diagram: 05/20/1781905/20/17819 Imaging Last Impressions Chest X-Ray 05/19/171953 Signed Impressions: Service Date/Time: Friday, May 19, 2017 20:17 - CONCLUSION: No acute disease. Anmol Sharma MD Objective Remarks GENERAL: Elderly white female, looks uncomfortable. HEENT: EOMI. CARDIOVASCULAR: Regular rate and rhythm. No obvious murmurs to auscultation. RESPIRATORY: using some accessory muscles, + wheezing throughout, no crackles GASTROINTESTINAL: Abdomen soft, non-tender, nondistended. BS normal. MUSCULOSKELETAL: Extremities without edema. No obvious deformities. NEUROLOGICAL: Awake, alert and oriented x4. No focal neurologic deficits. Moving both upper and lower extremities spontaneously. A/P Problem List: (1) NSTEMI (non-ST elevated myocardial infarction) ICD Code: I21.4 - Non-ST elevation (NSTEMI) myocardial infarction Status: Acute (2) Hypertensive urgency ICD Code: I16.0 - Hypertensive urgency (3) Dehydration ICD Code: E86.0 - Dehydration Assessment and Plan 1. NSTEMI: acute onset of substernal chest pain, Trop 1.40-->0.94, EKG w/ no acute ischemia. Dr. Caban recommended Adenosine myocardial perfusion study today. she just had it done therefore report not available. heparin gtt. Lipid Profile LDL 116, HDL 56, TG 58, on ASA, Statin, Metoprolol. NTG/Morphine prn if needed. 2. Hypertensive Urgency: BP 219/109, HR 94. S/p Vasotec in ER w/ BP currently 190's. Metoprolol, resumed lisinopril 40mg daily, hydralazine and vasotec prn. 3. Dehydration: GFR 63, d/c IVF as pt is very SOB and concerns for pulm edema. May need dose of lasix if x-ray concerning for pulm edema. 4. Wheezing/SOB: prior hx of asthma, duoneb scheduled and albuterol q4hrs prn, give solu-medrol 125mg IV x 1 and continue w 40mg IV q6hrs. STAT chest x-ray, monitor oxygen sats closely. 4. DVT Prophylaxis: Heparin gtt Discharge Planning worsening SOB. STAT chest x-ray pending. f/u on cards recommends. nuclear scan report pending. Aileen Ponce MD May 20, 2017 15:00
--- NOTE | 2017-05-20 15:14 | RADRPT ---
EXAM DATE/TIME: 05/20/2017 14:53 [facility] COMPARISON: CHEST SINGLE AP, May 19, 2017, 20:17. INDICATIONS : Short of breath. MEDICAL HISTORY : Hypertension. SURGICAL HISTORY : Cholecystectomy. ENCOUNTER: Subsequent ACUITY: 2 days PAIN SCORE: 0/10 LOCATION: Bilateral chest FINDINGS: A single portable frontal view the chest shows cardiomegaly with pulmonary vascular engorgement. Mild interstitial prominence. No discrete effusions. Bony structures are unremarkable. CONCLUSION: Cardiomegaly with pulmonary vascular engorgement. Mild interstitial prominence likely relates to inte rstitial edema. Qasim Triplett Jr., MD on May 20, 2017 at 15:11 Board Certified Radiologist. This report was verified electronically.
[2017-05-20] MEDS: RESP: ALBUTEROL 2.5 MG/IPRATROPIUM 0.5 MG NEB (SCH) NEB ×2 (15:34→21:57)
[2017-05-20 15:54] LABS: APTT (PATIENT) 52.7 SEC (24.3-30.1)
[2017-05-20] MEDS ORDERED: FUROSEMIDE 40 MG/4 ML VIAL IV PUSH ONE (16:45)
--- NOTE | 2017-05-20 17:26 | EKG ---
Date Performed: 05/19/2017 Time Performed: 19:57:39 PTAGE: 72 years EKG: Sinus rhythm WITH OCCASIONAL VENTRICULAR PREMATURE COMPLEXES CANNOT EXCLUDE A PRIOR SEPTAL MYOCARDIAL INFARCTION, BUT THE EKG CHANGES ARE ALSO CONSISTENT WITH LEAD PLACEMENT. THERE IS NO PRIOR TRACING FOR COMPARISO N SO CLINICAL CORRELATION IS IMPORTANT. ABNORMAL ECG NO PREVIOUS TRACING DOCTOR: Donna Aguirre Interpretating Date/Time 05/20/2017 17:24:27
[2017-05-20] MEDS: methylPREDNISolone SOD SUCC 40 MG/1 ML VIAL IV PUSH SCH (21:17)
[2017-05-20] MEDS: ACETAMINOPHEN/HYDROcodone 325 MG/5 MG TAB PO PRN (21:18)
[2017-05-21] VITALS (17 sets, daily range): BP systolic 134–179; BP diastolic 73–104; PULSE 52–93; RESP 18–22; TEMP 97.5–99.2; O2SAT 94–98
[2017-05-21] MEDS: methylPREDNISolone SOD SUCC 40 MG/1 ML VIAL IV PUSH SCH ×4 (03:09→21:01)
[2017-05-21] MEDS: RESP: ALBUTEROL 2.5 MG/IPRATROPIUM 0.5 MG NEB (SCH) NEB ×4 (04:39→19:43)
[2017-05-21] MEDS: ASPIRIN EC 81 MG TABEC PO SCH (08:51)
[2017-05-21] MEDS: DOCUSATE SODIUM 50 MG/SENNA 8.6 MG TAB PO SCH ×2 (08:51→21:00)
[2017-05-21] MEDS: FUROSEMIDE 40 MG/4 ML VIAL IV PUSH SCH (08:51)
[2017-05-21] MEDS: METOPROLOL TARTRATE 25 MG TAB PO SCH ×2 (08:52→21:00)
[2017-05-21] MEDS: PRAVASTATIN SOD 40 MG TAB PO SCH (08:52)
[2017-05-21] MEDS: POTASSIUM CHLORIDE 20 MEQ CONTROLLED RELEASE TAB PO SCH (08:52)
[2017-05-21] MEDS: LISINOPRIL 20 MG TAB PO SCH (08:52)
[2017-05-21] MEDS: SODIUM CHLORIDE 0.9% FLUSH 10 ML FLUSH IV FLUSH SCH ×2 (08:53→20:59)
--- NOTE | 2017-05-21 11:21 | HHI.PR ---
Subjective Remarks FOLLOW UP NSTEMI SOB IMPROVED HOPEFULLY HOME TOMORROW DIURESE LESS ANXIOUS CAN SWITCH TO PO STEROIDS, AND MUCINEX, AND INHALERS, AND LASIX AND STATIN AND ASPIRIN AND BLOOD PRESSURE MEDS IF STABLE IN AM AND DC Objective Vitals Vital Signs Date Time Temp Pulse Resp B/P (MAP) Pulse Ox O2 Delivery O2 Flow Rate FiO2 05/21/17 08:00 99.2 85 18 179/104 (129) 98 05/21/17 07:00 67 05/21/17 04:00 97.5 68 18 134/82 (99) 97 05/20/17 23:00 97.5 62 18 119/75 (90) 95 05/20/17 22:00 96 05/20/17 19:00 98.0 80 18 163/96 (118) 95 05/20/17 18:00 74 05/20/17 17:00 74 05/20/17 16:52 97.0 73 18 159/103 (121) 95 05/20/17 16:00 93 05/20/17 15:34 96 21 05/20/17 15:00 68 05/20/17 14:48 96.4 76 18 180/90 (120) 95 I/O 05/20/17 05/20/17 05/20/17 05/21/17 05/21/17 05/21/17 07:00 15:00 23:00 07:00 15:00 23:00 Intake Total 1160 ml 360 ml Output Total 200 ml 301 ml 1700 ml Balance -200 ml 859 ml -1340 ml Intake Oral 360 ml 360 ml IV Total 800 ml Output Urine Total 200 ml 300 ml 1700 ml Stool Total 1 ml # Voids 3 # Bowel Movements 0 Result Diagram: 05/20/1781905/20/17819 Other Results Laboratory Tests Test 05/19/17 20:05 05/20/17 04:35 05/20/17 08:20 05/20/17 15:00 White Blood Count 10.0 TH/MM3 7.5 TH/MM3 Red Blood Count 3.99 MIL/MM3 3.40 MIL/MM3 Hemoglobin 12.1 GM/DL 10.7 GM/DL Hematocrit 35.9 % 30.6 % Mean Corpuscular Volume 90.1 FL 90.0 FL Mean Corpuscular Hemoglobin 30.4 PG 31.3 PG Mean Corpuscular Hemoglobin Concent 33.8 % 34.8 % Red Cell Distribution Width 14.6 % 14.5 % Platelet Count 348 TH/MM3 278 TH/MM3 Mean Platelet Volume 8.8 FL 9.1 FL Neutrophils (%) (Auto) 61.8 % 49.6 % Lymphocytes (%) (Auto) 26.2 % 36.9 % Monocytes (%) (Auto) 9.3 % 9.0 % Eosinophils (%) (Auto) 1.7 % 3.3 % Basophils (%) (Auto) 1.0 % 1.2 % Neutrophils # (Auto) 6.2 TH/MM3 3.7 TH/MM3 Lymphocytes # (Auto) 2.6 TH/MM3 2.8 TH/MM3 Monocytes # (Auto) 0.9 TH/MM3 0.7 TH/MM3 Eosinophils # (Auto) 0.2 TH/MM3 0.3 TH/MM3 Basophils # (Auto) 0.1 TH/MM3 0.1 TH/MM3 CBC Comment DIFF FINAL DIFF FINAL Differential Comment Prothrombin Time 11.0 SEC Prothromb Time International Ratio 1.0 RATIO Activated Partial Thromboplast Time 28.6 SEC 66.2 SEC 52.7 SEC Blood Urea Nitrogen 17 MG/DL 15 MG/DL Creatinine 0.88 MG/DL 0.69 MG/DL Random Glucose 80 MG/DL 75 MG/DL Calcium Level 9.9 MG/DL 9.0 MG/DL Sodium Level 139 MEQ/L 141 MEQ/L Potassium Level 3.6 MEQ/L 3.5 MEQ/L Chloride Level 105 MEQ/L 110 MEQ/L Carbon Dioxide Level 22.9 MEQ/L 21.8 MEQ/L Anion Gap 11 MEQ/L 9 MEQ/L Estimat Glomerular Filtration Rate 63 ML/MIN 83 ML/MIN Total Creatine Kinase 127 U/L Creatine Kinase MB 5.3 NG/ML Troponin I 1.40 NG/ML 0.94 NG/ML Total Protein 6.3 GM/DL Albumin 3.2 GM/DL Alkaline Phosphatase 48 U/L Aspartate Amino Transf (AST/SGOT) 22 U/L Alanine Aminotransferase (ALT/SGPT) 18 U/L Total Bilirubin 0.8 MG/DL Triglycerides Level 58 MG/DL Cholesterol Level 184 MG/DL LDL Cholesterol 116 MG/DL HDL Cholesterol 56.0 MG/DL Cholesterol/HDL Ratio 3.28 RATIO Imaging Last Impressions Myocardial Perfusion Scan Nuc Med 05/20/17 0600 Signed Impressions: Service Date/Time: April 11:27 - CONCLUSION: 1. Large size, moderate severity, fixed perfusion defect involving the anterior wall suggesting prior myocardial infarction. 2. There is also evidence of hypokinesia to the anterior wall and a globally depressed ejection fraction of 43%%. 3. No evidence of stress-induced ischemia. RISK CATEGORY: Intermediate (1-3%% Annual Mortality Rate) Qasim Syed MD Chest X-Ray 05/20/17 0000 Signed Impressions: Service Date/Time: April 14:53 - CONCLUSION: Cardiomegaly with pulmonary vascular engorgement. Mild interstitial prominence likely relates to interstitial edema. Qasim Triplett Jr., MD Objective Remarks GENERAL: VERY ANXIOUS- LESS SOB TODAY SKIN: Warm and dry. HEAD: Atraumatic. Normocephalic. EYES: Pupils equal and round. No scleral icterus. No injection or drainage. EOMI ENT: No nasal bleeding or discharge. Mucous membranes pink and moist.EOMI PERRLA NECK: Trachea midline. No JVD. SUPPLE CARDIOVASCULAR: Regular rate and rhythm. S1, S2 NO S3 OR S4 RESPIRATORY: No accessory muscle use. DECREASED BS BL- . Breath sounds equal bilaterally. GASTROINTESTINAL: Abdomen soft, non-tender, nondistended. Hepatic and splenic margins not palpable. OBESE MUSCULOSKELETAL: Extremities without clubbing, cyanosis TRACE EDEMA No obvious deformities. NEUROLOGICAL: Awake and alert. No obvious cranial nerve deficits. Motor grossly within normal limits. 4 out of 5 muscle strength in the arms and legs. Normal speech. PSYCHIATRIC: Appropriate mood and affect; insight and judgment normal. Medications and IVs Current Medications Aspirin (Aspirin Chew) 324 mg ONCE ONCE PO Last administered on 05/19/17 20: 25; Start 05/19/17 at 20:00; Stop 05/19/17 at 20:01; Status DC Sodium Chloride (NS Flush) 2 ml UNSCH PRN IVF FLUSH AFTER USING IV ACCESS Last administered on 05/19/17 20:25; Start 05/19/17 at 20:00; Stop 05/19/17 at 21 :37; Status DC Nitroglycerin (Nitrostat Sl) 0.4 mg ONCE ONCE SL Last administered on 20:33; Start 05/19/17 at 20:00; Stop 05/19/17 at 20:01; Status DC Enalaprilat (Vasotec Inj) 2.5 mg ONCE ONCE IV PUSH Last administered on 20:25; Start 05/19/17 at 20:00; Stop 05/19/17 at 20:01; Status DC Heparin Sodium (Porcine) (Heparin Inj) 5,000 units ONCE ONCE IV PUSH Last administered on 05/19/17 21:54; Start 05/19/17 at 21:15; Stop 05/20/17 at 15 :49; Status DC Heparin Sodium (Porcine) (Heparin Inj) 5,000 units UNSCH PRN IV PUSH APTT LESS THAN 25; Start 05/20/17 at 03:15; Stop 05/20/17 at 15:49; Status DC Heparin Sodium (Porcine) (Heparin Inj) 2,500 units UNSCH PRN IV PUSH APTT 25 TO 39; Start 05/20/17 at 03:15; Stop 05/20/17 at 15:49; Status DC Heparin Sodium/ Dextrose 250 ml @ 10 mls/hr TITRATE PRN IV Coagulation management Last administered on 05/19/17 22:06; Start 05/19/17 at 21:15; Stop 05/20/17 at 15:49; Status DC Aspirin (Ecotrin Ec) 81 mg DAILY PO Last administered on 05/21/17 08:51; Start 05/20/17 at 09:00 Metoprolol Tartrate (Lopressor) 25 mg Q12HR PO Last administered on 05/21/17 08:52; Start 05/20/17 at 09:00 Pravastatin Sodium (Pravachol) 40 mg DAILY PO Last administered on 05/21/17 08:52; Start 05/20/17 at 09:00 Sodium Chloride 1,000 ml @ 100 mls/hr Q10H IV Last administered on 05/20/17 08:17; Start 05/19/17 at 21:31; Stop 05/20/17 at 14:56; Status DC Sodium Chloride (NS Flush) 2 ml UNSCH PRN IV FLUSH FLUSH AFTER USING IV ACCESS ; Start 05/19/17 at 21:45 Sodium Chloride (NS Flush) 2 ml BID IV FLUSH Last administered on 05/21/17 08 :53; Start 05/20/17 at 09:00 Ondansetron HCl (Zofran Inj) 4 mg Q6H PRN IVP NAUSEA OR VOMITING; Start at 21:45 Acetaminophen (Tylenol) 650 mg Q6H PRN PO FEVER/PAIN SCALE 1 TO 2 Last administered on 05/20/17 08:25; Start 05/19/17 at 21:45 Acetaminophen/ Hydrocodone Bitart ([place] 5-325 Mg) 1 tab Q4H PRN PO PAIN SCALE 3 TO 5 Last administered on 05/20/17 21:18; Start 05/19/17 at 21:45 Morphine Sulfate (Morphine Inj) 2 mg Q3H PRN IV PUSH Pain 6-10; Start at 21:45 Senna/Docusate Sodium (Kels[place]-Colace) 1 tab BID PO Last administered on 08:51; Start 05/20/17 at 09:00 Magnesium Hydroxide (Milk Of Magnesia Liq) 30 ml Q12H PRN PO Mild constipation ; Start 05/19/17 at 21:45 Sennosides (Senokot) 17.2 mg Q12H PRN PO Moderate constipation; Start at 21:45 Bisacodyl (Dulcolax Supp) 10 mg DAILY PRN RECTAL SEVERE CONSITIPATION; Start 05/19/17 at 21:45 Lactulose (Lactulose Liq) 30 ml DAILY PRN PO SEVERE CONSITIPATION; Start 05/19 at 21:45 Nitroglycerin (Nitroglycerin 2% Oint) 0.5 inch Q6HR PRN TOPICAL CHEST PAIN; Start 05/19/17 at 21:45 Ropinirole HCl (Requip) 0.5 mg HS PO Last administered on 05/20/17 21:17; Start 05/19/17 at 22:15 Hydromorphone HCl (Dilaudid Pf Inj) 0.5 mg ONCE ONCE IV PUSH ; Start 05/19/17 at 22:15; Stop 05/19/17 at 22:30; Status DC Diphenhydramine HCl (Benadryl Inj) 25 mg ONCE ONCE IV PUSH Last administered on 05/19/17 23:32; Start 05/19/17 at 23:45; Stop 05/19/17 at 23:46; Status DC Regadenoson (Lexiscan Inj) 0.4 mg STK-MED ONCE .ROUTE ; Start 05/20/17 at 11:03 ; Stop 05/20/17 at 11:04; Status DC Albuterol Sulfate (Albuterol Concentrated Neb) 2.5 mg Q4HR NEB PRN NEB wheezing ; Start 05/20/17 at 14:30 Lisinopril (Prinivil) 40 mg DAILY PO Last administered on 05/21/17 08:52; Start 05/21/17 at 09:00 Hydralazine HCl (Apresoline) 10 mg Q6HR PRN PO SBP>160, DBP>90 Last administered on 05/20/17 16:56; Start 05/20/17 at 14:45 Lisinopril (Prinivil) 40 mg ONCE ONCE PO Last administered on 05/20/17 15:25 ; Start 05/20/17 at 15:00; Stop 05/20/17 at 15:01; Status DC Enalaprilat (Vasotec Inj) 2.5 mg Q8H PRN IV PUSH SBP>160/90; Start 05/20/17 at 15:00 Methylprednisolone Sodium Succinate (SoluMEDROL INJ) 125 mg ONCE ONCE IV PUSH Last administered on 05/20/17 15:25; Start 05/20/17 at 15:00; Stop 05/20/17 at 15:01; Status DC Methylprednisolone Sodium Succinate (SoluMEDROL INJ) 40 mg Q6H IV PUSH Last administered on 05/21/17 08:53; Start 05/20/17 at 21:00 Albuterol/ Ipratropium (Duoneb Neb) 1 ampule Q6HR NEB NEB Last administered on 05/21/17 09:37; Start 05/20/17 at 16:00 Furosemide (Lasix Inj) 40 mg ONCE ONCE IV PUSH Last administered on 16:57; Start 05/20/17 at 16:45; Stop 05/20/17 at 16:47; Status DC Furosemide (Lasix Inj) 40 mg DAILY IV PUSH Last administered on 05/21/17 08: 51; Start 05/21/17 at 09:00 Potassium Chloride (KCl) 20 meq DAILY PO Last administered on 05/21/17 08:52 ; Start 05/21/17 at 09:00 A/P Problem List: (1) NSTEMI (non-ST elevated myocardial infarction) ICD Code: I21.4 - Non-ST elevation (NSTEMI) myocardial infarction Status: Acute (2) Hypertensive urgency ICD Code: I16.0 - Hypertensive urgency (3) Dehydration ICD Code: E86.0 - Dehydration Assessment and Plan 1. NSTEMI: acute onset of substernal chest pain, Trop 1.40-->0.94, EKG w/ no acute ischemia. Dr. Caban recommended Adenosine myocardial perfusion study today. she just had it done therefore report not available. heparin gtt. Lipid Profile LDL 116, HDL 56, TG 58, on ASA, Statin, Metoprolol. NTG/Morphine prn if needed. 2. Hypertensive Urgency: BP 219/109, HR 94. S/p Vasotec in ER w/ BP currently 190's. Metoprolol, resumed lisinopril 40mg daily, hydralazine and vasotec prn. 3. Dehydration: GFR 63, d/c IVF as pt is very SOB and concerns for pulm edema. May need dose of lasix if x-ray concerning for pulm edema. 4. Wheezing/SOB: prior hx of asthma, duoneb scheduled and albuterol q4hrs prn, give solu-medrol 125mg IV x 1 and continue w 40mg IV q6hrs. STAT chest x-ray, monitor oxygen sats closely. 4. DVT Prophylaxis: Heparin gtt FLUID OVERLOAD AND UNCONTROLLED HYPERTENSION COPD/ASTHMA- STEROIDS, NEBS, MUCINEX, INCENTIVE SPIROMETRY Discharge Planning IF BREATHING BETTER SWITCH TO PO STEROIDS, AND PO LASIX AND PO BLOOD PRESSURE MEDS WITH STATIN AND ASPIRIN AT IN Remi Spivey DO May 21, 2017 11:21
[2017-05-21] MEDS ORDERED: amLODIPine BESYLATE 5 MG TAB PO ONE (11:30)
[2017-05-21] MEDS: guaiFENesin E.R. 600 MG TAB PO SCH ×2 (12:11→20:59)
[2017-05-21] MEDS: ALPRAZolam 0.25 MG TAB PO PRN ×2 (12:41→21:06)
[2017-05-21] MEDS ORDERED: OMEP20TA PO (13:54)
[2017-05-21] MEDS ORDERED: TRAV0.00 EACH EYE (13:58)
[2017-05-21] MEDS ORDERED: TIMO0.5S30 EACH EYE (13:58)
[2017-05-21] MEDS: PANTOPRAZOLE SOD 20 MG DELAYED RELEASE TAB PO SCH (15:10)
[2017-05-21] MEDS: TIMOLOL MALEATE 0.5% OPHT SOLN 5 ML BTL EACH EYE SCH (15:50)
--- NOTE | 2017-05-21 17:33 | PD.CARD.PN ---
Subjective Subjective Remarks No CP or SOB, feels better, anxious due to her son terminal illness Objective Medications Current Medications Medications (Trade) Dose Ordered Sig/Yandy Route Start Time Stop Time Status Last Admin (Ecotrin Ec) 81 mg DAILY PO 05/20/17 09:00 05/21/17 08:51 (Lopressor) 25 mg Q12HR PO 05/20/17 09:00 05/21/17 08:52 (Pravachol) 40 mg DAILY PO 05/20/17 09:00 05/21/17 08:52 (NS Flush) 2 ml UNSCH PRN IV FLUSH 05/19/17 21:45 (NS Flush) 2 ml BID IV FLUSH 05/20/17 09:00 05/21/17 08:53 (Zofran Inj) 4 mg Q6H PRN IVP 05/19/17 21:45 (Tylenol) 650 mg Q6H PRN PO 05/19/17 21:45 05/20/17 08:25 ([place] 5-325 Mg) 1 tab Q4H PRN PO 05/19/17 21:45 05/20/17 21:18 (Morphine Inj) 2 mg Q3H PRN IV PUSH 05/19/17 21:45 (Kelsi-Colace) 1 tab BID PO 05/20/17 09:00 05/21/17 08:51 (Milk Of Magnesia Liq) 30 ml Q12H PRN PO 05/19/17 21:45 (Senokot) 17.2 mg Q12H PRN PO 05/19/17 21:45 (Dulcolax Supp) 10 mg DAILY PRN RECTAL 05/19/17 21:45 (Lactulose Liq) 30 ml DAILY PRN PO 05/19/17 21:45 (Nitroglycerin 2% Oint) 0.5 inch Q6HR PRN TOPICAL 05/19/17 21:45 (Requip) 0.5 mg HS PO 05/19/17 22:15 05/20/17 21:17 (Albuterol Concentrated Neb) 2.5 mg Q4HR NEB PRN NEB 05/20/17 14:30 (Prinivil) 40 mg DAILY PO 05/21/17 09:00 05/21/17 08:52 (Apresoline) 10 mg Q6HR PRN PO 05/20/17 14:45 05/20/17 16:56 (Vasotec Inj) 2.5 mg Q8H PRN IV PUSH 05/20/17 15:00 (SoluMEDROL INJ) 40 mg Q6H IV PUSH 05/20/17 21:00 05/21/17 15:08 (Duoneb Neb) 1 ampule Q6HR NEB NEB 05/20/17 16:00 05/21/17 16:06 (Lasix Inj) 40 mg DAILY IV PUSH 05/21/17 09:00 05/21/17 08:51 (KCl) 20 meq DAILY PO 05/21/17 09:00 05/21/17 08:52 (Norvasc) 5 mg DAILY PO 05/22/17 09:00 (Mucinex Er) 600 mg BID PO 05/21/17 12:00 05/21/17 12:11 (Xanax) 0.25 mg Q6H PRN PO 05/21/17 12:45 05/21/17 12:41 (Timoptic 0.5% Opth Soln) 1 drop DAILY EACH EYE 05/21/17 17:00 (Protonix) 20 mg DAILY PO 05/21/17 16:00 05/21/17 15:10 (Xalatan 0.005% Opth Soln) 1 drop HS EACH EYE 05/21/17 21:00 Vital Signs / I&O Vital Signs Date Time Temp Pulse Resp B/P (MAP) Pulse Ox O2 Delivery O2 Flow Rate FiO2 05/21/17 16:12 95 05/21/17 14:00 62 05/21/17 12:00 98.3 64 18 150/73 (98) 94 05/21/17 12:00 93 05/21/17 11:00 68 05/21/17 10:00 74 05/21/17 09:00 86 05/21/17 08:00 80 05/21/17 08:00 99.2 85 18 179/104 (129) 98 05/21/17 07:00 67 05/21/17 04:00 97.5 68 18 134/82 (99) 97 05/20/17 23:00 97.5 62 18 119/75 (90) 95 05/20/17 22:00 96 05/20/17 19:00 98.0 80 18 163/96 (118) 95 05/20/17 18:00 74 I/O 05/20/17 05/20/17 05/20/17 05/21/17 05/21/17 05/21/17 07:00 15:00 23:00 07:00 15:00 23:00 Intake Total 1160 ml 360 ml Output Total 200 ml 301 ml 1700 ml Balance -200 ml 859 ml -1340 ml Intake Oral 360 ml 360 ml IV Total 800 ml Output Urine Total 200 ml 300 ml 1700 ml Stool Total 1 ml # Voids 3 # Bowel Movements 0 Physical Exam GENERAL: In NAD SKIN: Warm and dry. HEAD: Normocephalic. EYES: No scleral icterus. No injection or drainage. NECK: Supple, trachea midline. No JVD or lymphadenopathy. CARDIOVASCULAR: Regular rate and rhythm without murmurs, gallops, or rubs. RESPIRATORY: Breath sounds equal bilaterally. No accessory muscle use. GASTROINTESTINAL: Abdomen soft, non-tender, nondistended. MUSCULOSKELETAL: No cyanosis, or edema. Assessment and Plan Problem List: (1) NSTEMI (non-ST elevated myocardial infarction) ICD Codes: I21.4 - Non-ST elevation (NSTEMI) myocardial infarction Status: Acute (2) Hypertensive urgency ICD Codes: I16.0 - Hypertensive urgency Assessment and Plan Adenosine myocardial perfusion study showed old anteroseptal infarction and no evidence of ischemia. Echo with moderate LV dysfunction and anteroseptal hypokinesis. Continue therapy for CAD including aggressive cardiac risk factor modification. OK to discharge home. 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 D/w pt and . Varun Caban MD May 21, 2017 17:33
[2017-05-21] MEDS: ACETAMINOPHEN/HYDROcodone 325 MG/5 MG TAB PO PRN (21:00)
[2017-05-21] MEDS ORDERED: LATANOPROST 0.005% OPHT SOLN 2.5 ML BTL EACH EYE SCH (21:00)
[2017-05-22] VITALS (18 sets, daily range): BP systolic 134–144; BP diastolic 63–86; PULSE 50–78; RESP 16–18; TEMP 97.6–98.2; O2SAT 93–97
[2017-05-22] MEDS: methylPREDNISolone SOD SUCC 40 MG/1 ML VIAL IV PUSH SCH ×2 (03:00→09:59)
[2017-05-22] MEDS: RESP: ALBUTEROL 2.5 MG/IPRATROPIUM 0.5 MG NEB (SCH) NEB ×2 (04:17→09:42)
[2017-05-22] MEDS: ALPRAZolam 0.25 MG TAB PO PRN (07:42)
[2017-05-22 08:36] LABS: AUTOMATED NEUTROPHIL # 12.4 TH/MM3 (1.8-7.7); BASOPHIL % 0.1 % (0.0-2.0); EOSINOPHIL % 0.1 % (0.0-4.0); HEMATOCRIT 33.1 % (35.0-46.0); HEMO FLAGS DIFF FINAL; LYMPH % 14.8 % (9.0-44.0); LYMPHOCYTE # 2.3 TH/MM3 (1.0-4.8); MEAN CELL VOLUME 90.8 FL (80.0-100.0); MEAN CORPUSCULAR HEMOGLOBIN 30.7 PG (27.0-34.0); MEAN CORPUSCULAR HGB CONC 33.8 % (32.0-36.0); MONO % 6.1 % (0.0-8.0); NEUT % 78.9 % (16.0-70.0); PLATELET COUNT 316 TH/MM3 (150-450); RED BLOOD COUNT 3.65 MIL/MM3 (4.00-5.30); RED CELL DISTRIBUTION WIDTH 14.9 % (11.6-17.2); WHITE BLOOD COUNT 15.8 TH/MM3 (4.0-11.0)
[2017-05-22] MEDS ORDERED: amLODIPine BESYLATE 5 MG TAB PO SCH (09:00)
[2017-05-22 09:12] LABS: ANION GAP 12 MEQ/L (5-15); BICARBONATE 23.6 MEQ/L (21.0-32.0); BLOOD UREA NITROGEN 38 MG/DL (7-18); CHLORIDE 105 MEQ/L (98-107); GLOMERULAR FILTRATION RATE 41 ML/MIN (>89); MAGNESIUM 1.8 MG/DL (1.5-2.5); POTASSIUM 3.2 MEQ/L (3.5-5.1); SODIUM (NA) 141 MEQ/L (136-145)
[2017-05-22 09:13] LABS: AST (GOT) 21 U/L (15-37)
[2017-05-22 09:22] LABS: ALKALINE PHOSPHATASE 53 U/L (45-117); ALT (GPT) 24 U/L (10-53); FREE T4 1.32 NG/DL (0.76-1.46); TOTAL BILIRUBIN ADULT 0.6 MG/DL (0.2-1.0)
[2017-05-22] MEDS: FUROSEMIDE 40 MG/4 ML VIAL IV PUSH SCH (09:58)
[2017-05-22] MEDS: guaiFENesin E.R. 600 MG TAB PO SCH (09:59)
[2017-05-22] MEDS: PRAVASTATIN SOD 40 MG TAB PO SCH (09:59)
[2017-05-22] MEDS: ASPIRIN EC 81 MG TABEC PO SCH (10:00)
[2017-05-22] MEDS: POTASSIUM CHLORIDE 20 MEQ CONTROLLED RELEASE TAB PO SCH (10:00)
[2017-05-22] MEDS: METOPROLOL TARTRATE 25 MG TAB PO SCH (10:01)
[2017-05-22] MEDS: PANTOPRAZOLE SOD 20 MG DELAYED RELEASE TAB PO SCH (10:01)
[2017-05-22] MEDS: DOCUSATE SODIUM 50 MG/SENNA 8.6 MG TAB PO SCH (10:01)
[2017-05-22] MEDS: LISINOPRIL 20 MG TAB PO SCH (10:01)
[2017-05-22] MEDS: SODIUM CHLORIDE 0.9% FLUSH 10 ML FLUSH IV FLUSH SCH (10:07)
[2017-05-22] MEDS: TIMOLOL MALEATE 0.5% OPHT SOLN 5 ML BTL EACH EYE SCH (10:08)
[2017-05-22] MEDS ORDERED: ALPR.25 PO (12:24)
[2017-05-22] MEDS ORDERED: METO25TA3 PO (12:24)
[2017-05-22] MEDS ORDERED: ASPI-99 PO (12:24)
[2017-05-22] MEDS ORDERED: VENTAER INH (12:24)
[2017-05-22] MEDS ORDERED: PRAV40TA PO (12:24)
[2017-05-22] MEDS ORDERED: PRED50 PO (12:24)
[2017-05-22] MEDS ORDERED: AMLO5 PO (12:24)
--- NOTE | 2017-05-22 12:28 | HHI.DCPOC ---
Discharge Care Plan Diagnosis: (1) Anxiety (2) Renal insufficiency (3) Hypertensive urgency (4) NSTEMI (non-ST elevated myocardial infarction) (5) Renal insufficiency Goals to Promote Your Health * To prevent worsening of your condition and complications * To maintain your health at the optimal level Directions to Meet Your Goals Take your medications as prescribed Follow your dietary instruction Follow activity as directed Keep your appointments as scheduled Take your immunizations and boosters as scheduled If your symptoms worsen call your PCP, if no PCP go to Urgent Care Center or Emergency Room Smoking is Dangerous to Your Health. Avoid second hand smoke Call the 24-hour hour crisis hotline for domestic abuse at Michelle Hawk MD May 22, 2017 12:28
[2017-05-22] MEDS ORDERED: POTASSIUM CHLORIDE 20 MEQ CONTROLLED RELEASE TAB PO ONE (12:30)
--- NOTE | 2017-05-22 16:31 | HHI.DS ---
Discharge Summary Admission Date May 19, 2017 at 21:21 Discharge Date: May 22, 2017 Admitting Diagnosis NSTEMI (1) NSTEMI (non-ST elevated myocardial infarction) ICD Code: I21.4 - Non-ST elevation (NSTEMI) myocardial infarction Diagnosis: Principal Status: Acute (2) Hypertensive urgency ICD Code: I16.0 - Hypertensive urgency Diagnosis: Principal Procedures See hospital course. Brief History - From Admission This is a 72-year-old female with a PMH of HTN who presents to the ER secondary to elevated blood pressure. States she was visiting her Son who is a patient in the ICU w/ liver/renal failure, when she suddenly had episode of chest pain. BP taken by BALL FRINGE MACHINE OPERATOR noted to be in 200's systolic. Pt states she forgot to take her Lisinopril today in light of her Son's admission to the ICU. On arrival to ER BP 250/109, HR 94, O2 sat 97% on RA, Afebrile. S/p Vasotec 2.5mg IV in ER, BP currently 160's systolic. CBC unremarkable. Chemistry remarkable except for GFR 63. Troponin 1.40. CXR with no acute findings. Dr. Caban consulted by ER physician, recommended Heparin gtt, will eval in am. CBC/BMP: 05/22/17 0728 05/22/17 0728 Significant Findings Laboratory Tests Test 05/19/17 20:05 05/20/17 04:35 05/20/17 08:20 05/20/17 15:00 Red Blood Count 3.99 MIL/MM3 (4.00-5.30) 3.40 MIL/MM3 (4.00-5.30) Monocytes (%) (Auto) 9.3 % (0.0-8.0) 9.0 % (0.0-8.0) Estimat Glomerular Filtration Rate 63 ML/MIN (>89) 83 ML/MIN (>89) Creatine Kinase MB 5.3 NG/ML (0.5-3.6) Troponin I 1.40 NG/ML (0.02-0.05) 0.94 NG/ML (0.02-0.05) Activated Partial Thromboplast Time 66.2 SEC (24.3-30.1) 52.7 SEC (24.3-30.1) Hemoglobin 10.7 GM/DL (11.6-15.3) Hematocrit 30.6 % (35.0-46.0) Total Protein 6.3 GM/DL (6.4-8.2) Albumin 3.2 GM/DL (3.4-5.0) Chloride Level 110 MEQ/L (98-107) LDL Cholesterol 116 MG/DL (0-99) Test 05/22/17 07:28 White Blood Count 15.8 TH/MM3 (4.0-11.0) Red Blood Count 3.65 MIL/MM3 (4.00-5.30) Hemoglobin 11.2 GM/DL (11.6-15.3) Hematocrit 33.1 % (35.0-46.0) Neutrophils (%) (Auto) 78.9 % (16.0-70.0) Neutrophils # (Auto) 12.4 TH/MM3 (1.8-7.7) Monocytes # (Auto) 1.0 TH/MM3 (0-0.9) Blood Urea Nitrogen 38 MG/DL (7-18) Creatinine 1.29 MG/DL (0.50-1.00) Potassium Level 3.2 MEQ/L (3.5-5.1) Estimat Glomerular Filtration Rate 41 ML/MIN (>89) Imaging Last Impressions Myocardial Perfusion Scan Nuc Med 05/20/17 0600 Signed Impressions: Service Date/Time: April 11:27 - CONCLUSION: 1. Large size, moderate severity, fixed perfusion defect involving the anterior wall suggesting prior myocardial infarction. 2. There is also evidence of hypokinesia to the anterior wall and a globally depressed ejection fraction of 43%%. 3. No evidence of stress-induced ischemia. RISK CATEGORY: Intermediate (1-3%% Annual Mortality Rate) Qasim Syed MD Chest X-Ray 05/20/17 0000 Signed Impressions: Service Date/Time: April 14:53 - CONCLUSION: Cardiomegaly with pulmonary vascular engorgement. Mild interstitial prominence likely relates to interstitial edema. Qasim Triplett Jr., MD PE at Discharge GENERAL: In no acute distress CARDIOVASCULAR: Regular rate and rhythm. S1, S2 NO S3 OR S4 RESPIRATORY: No accessory muscle use. DECREASED BS BL- . Breath sounds equal bilaterally. GASTROINTESTINAL: Abdomen soft, non-tender, nondistended. Hepatic and splenic margins not palpable. OBESE MUSCULOSKELETAL: Extremities without clubbing, cyanosis negative for any lower extremity edema. Pt update on day of discharge Follow-up for hypertensive urgency and NSTEMI Patient very anxious to go home because her son just last night. Her nurse and has been at the bedside during interview. Patient stated that she never has shortness of breathing. She stated that she had chest pain but that has resolved. Deny any chest pain, shortness of breathing, palpitation, lightheadedness or dizziness. Patient stated that she went on a high-protein and sodium diet. She stated that she was ingesting a lot of sodium because the diet requires that. Patient stated that she lost a lot of weight but she is unsure that if it was good for her heart. Hospital Course Patient presented to the hospital secondary to chest pain. She is found to have elevated troponin at 1.40 that trended down. Patient was treated as ACS with aspirin, statin, metoprolol, nitroglycerin morphine when necessary, heparin drip. EKG shows no ST elevation depression. Nail Making Machine Setter Dr. caban was consulted in which patient had a nuclear stress test done which showed old anteroseptal infarction and no evidence of ischemia. Echo showed moderate LV dysfunction and anteroseptal hypo-kinesis. Per scleroscope tester continue with medical management for coronary artery disease including aggressive cardiac risk factors and she was told to follow-up with her cardiac all just shortly after discharge. Patient also was found to have hypertensive urgency most likely secondary to the change for diet in which she was adjusting high sodium. Extensive education was given on sodium and recommended less than 2 g a day. Patient was treated with metoprolol, lisinopril and a cardiac diet along with Lasix for her lower extremity edema with drastic improvement with her blood pressure. She was also treated for lower extremity edema and was put on a 1.5 L fluid restriction in which later on she was overly diuresed. She became dehydrated. Lasix was stopped. Creatinine was mildly elevated, but she make good urine output. Patient also noted had mild wheezing which resolved quickly. She was initially given Solu-Medrol and albuterol. Later transition to oral prednisone and appear otherwise needed. Patient was never short of breath during hospital course. Patient was told to follow-up with her primary care physician within one week to repeat a BMP to monitor her creatinine. She will also total follow up with her scleroscope tester within a week. Extensive education given to patient in regards to hypertension, kidney function and wheezing. Pt Condition on Discharge: Stable Discharge Disposition: Discharge Home Discharge Time: > 30 minutes Discharge Instructions DIET: Follow Instructions for: Heart Healthy Diet Fluid Restrictions: 2 Liter Activities you can perform: Regular-No Restrictions Follow up Referrals: Cardiology - 1 Week PCP Follow-up - 1 Week New Medications: Albuterol 18 GM Inh (Ventolin Hfa 18 GM Inh) 90 Mcg/Act Aer 2 PUFF INH Q6H PRN for SHORTNESS OF BREATH, #1 INHALER 0 Refills Prednisone (Prednisone) 50 Mg Tab 50 MG PO DAILY for respiratory, #3 TAB 0 Refills Alprazolam (Xanax) 0.25 Mg Tab 0.25 MG PO BID PRN for ANXIETY/DEPRESSION, #15 TAB 0 Refills Amlodipine (Norvasc) 5 Mg Tab 5 MG PO DAILY for hypertension, #30 TAB [address] (Adult Aspirin EC Low Strength) 81 Mg Tabec 81 MG PO DAILY for coronary artery disease, #30 TAB 0 Refills Metoprolol Tartrate (Metoprolol Tartrate) 25 Mg Tab 25 MG PO Q12HR for coronary artery disease, #60 TAB 0 Refills Pravastatin (Pravachol) 40 Mg Tab 40 MG PO DAILY for hyperlipidemia, #30 TAB 0 Refills Continued Medications: Lisinopril (Lisinopril) 40 Mg Tab 40 MG PO DAILY for Blood Pressure Management, #30 TAB 0 Refills Omeprazole (Omeprazole) 20 Mg Tab 20 MG PO DAILY, #30 TAB 0 Refills Ropinirole (Ropinirole) 0.5 Mg Tab Unknown Dose PO HS, #30 TAB 0 Refills Timolol Opth Drops (Timolol Opth Drops) 0.5 % Soln 1 DROP EACH EYE MORNING for Glaucoma, #1 BOTTLE 0 Refills Travoprost Opth Drops (Travatan Z Opth Drops) 0.004 % Soln 1 DROP EACH EYE HS for Glaucoma, #1 BOTTLE 0 Refills Michelle Hawk MD May 22, 2017 16:31
[2017-05-23 09:55] LABS: HEMOGLOBIN A1a 1.3 %; HEMOGLOBIN A1b 0.8 %; HEMOGLOBIN Ao 83.7 %; HEMOGLOBIN LA1C 2.4 %
--- NOTE | 2017-05-24 08:26 | ECHRPT ---
Indication: CONCLUSIONS Normal left ventricular size. The left ventricular systolic function is moderately reduced with an estimated ejection fraction of 40%. There is anteroseptal hypokinesis. The left atrial size is [id number] dilated. Mild mitral valve regurgitation. Aortic valve sclerosis is present. There is mild to moderate tricuspid valve regurgitation. The estimated pulmonary arterial pressure is 45 mHg. BP: 179 / 104 HR: Rhythm: Sinus MEASUREMENTS (Male / Female) Normal Values Technical Quality:Fair 2D ECHO LV Diastolic Diameter PLAX 5.9 cm 4.2 - 5.9 / 3.9 - 5.3 cm LV Systolic Diameter PLAX 5.6 cm IVS Diastolic Thickness 0.7 cm 0.6 - 1.0 / 0.6 - 0.9 cm LVPW Diastolic Thickness 0.9 cm 0.6 - 1.0 / 0.6 - 0.9 cm LV Relative Wall Thickness 0.3 LVOT Diameter 1.6 cm Aortic Root Diameter 2.5 cm LA Systolic Diameter LX 4.0 cm 3.0 - 4.0 / 2.7 - 3.8 cm M-MODE AV Cusp Separation MM 1.9 cm DOPPLER AV Peak Velocity 153.0 cm/s AV Peak Gradient 9.4 mmHg AV Mean Gradient 6.0 mmHg AV Velocity Time Integral 31.1 cm LVOT Peak Velocity 82.7 cm/s LVOT Peak Gradient 2.7 mmHg LVOT Velocity Time Integral 16.0 cm AV Area Cont Eq vti 1.0 cm AV Area Cont Eq pk 1.1 cm Mitral E Point Velocity 77.0 cm/s Mitral A Point Velocity 75.5 cm/s Mitral E to A Ratio 1.0 TR Peak Velocity 296.0 cm/s TR Peak Gradient 35.0 mmHg Right Atrial Pressure 10.0 mmHg Pulmonary Artery Systolic Pressu 45.0 mmHg Right Ventricular Systolic Press 45.0 mmHg PV Peak Velocity 68.4 cm/s PV Peak Gradient 1.9 mmHg FINDINGS LEFT VENTRICLE Normal left ventricular size. The left ventricular systolic function is moderately reduced with an estimated ejection fraction of 40%. There is anteroseptal hypokinesis. LEFT ATRIUM The left atrial size is [id number] dilated. MITRAL VALVE Mild mitral valve regurgitation. AORTIC VALVE Aortic valve sclerosis is present. TRICUSPID VALVE There is mild to moderate tricuspid valve regurgitation. The estimated pulmonary arterial pressure is 45 mHg. Varun Caban MD, FACC Edited by: [employer] Rhythmic Gymnastics Coach (Electronically Signed) Final Date:21 May 2017 17:23 Amended: 24 May 2017 08:25
== END 2017-05-22 14:38 | disposition home or self-care (01) | DRG 282 ==
LOC: NEPC 19:20 → NEDA 21:21 → HCIN 05-20 01:05
PROVIDERS: ADMIT Family Medicine; ATTEND Family Medicine
DX: I21.4 Non-ST elevation (NSTEMI) myocardial infarction (principal); E87.70 Fluid overload, unspecified; J44.9 Chronic obstructive pulmonary disease, unspecified; E86.0 Dehydration; I16.0 Hypertensive urgency; E78.5 Hyperlipidemia, unspecified; F41.9 Anxiety disorder, unspecified; I10 Essential (primary) hypertension; R60.0 Localized edema; I25.10 Atherosclerotic heart disease of native coronary artery without angina pectoris
CPT/HCPCS: 71010; 78452; 80048; 80053; 80061; 82550; 82552; 83036; 83735; 84100; 84439; 84443; 84484; 85025; 85610; 85730; 93005; 93306; 94150; 94640; 94664; 96374; A9502; J1200; J1644; J1940; J2785; J2920; J2930; J7030; J7611